=== PATIENT | female | born 1995 | race Caucasian/White ===

== ENCOUNTER 2019-05-13 00:27 | Emergency (ER) | payer BC, SELFPAY ==
[2019-05-13] MEDS ORDERED: Ondansetron PF 4 MG/2 ML Vial ONE (00:30)
== END 2019-05-13 00:45 | disposition home or self-care (01) ==
LOC: ERS 00:27
DX: F10.129 Alcohol abuse with intoxication, unspecified (principal)
CPT/HCPCS: 96374; J2405